=== PATIENT | female | born 1990 | race Two or more races ===

== ENCOUNTER 2020-07-29 22:31 | Emergency (ER) | payer OTHER ==
[~2020-07-29] VITALS: Ht 172.7 cm; Wt 66.7 kg
[2020-07-30] MEDS ORDERED: PYRIDIUM DS200 MG PO (02:22)
[2020-07-30] MEDS ORDERED: KEFLEX500 MG PO (02:22)
== END 2020-07-30 02:27 | disposition home or self-care (01) ==
LOC: ER 22:31
DX: N39.0 Urinary tract infection, site not specified (principal); B95.7 Other staphylococcus as the cause of diseases classified elsewhere; R31.29 Other microscopic hematuria